=== PATIENT | male | born 1960 | race Caucasian/White ===

== ENCOUNTER 2016-10-26 19:51 | Emergency (ER) | payer MEDICARE ==
--- NOTE | ~2016-10-26 | ER ---
PATIENT'S NAME: KAREEM VITAL [facility] AGE: 56 Y [address] ROOM: [place] [id number] LOCATION: [facility] ADMIT DATE: 10/26/2016 ER/Outpatient Report DISCHARGE DATE: 10/26/2016 FAMILY PHYSICIAN: Anyi Garner MD ATTENDING PHYSICIAN: Dawit Horne Arrival Time: 2018 hours. Encounter Time: 2022. SUBJECTIVE: Chief complaint of abdominal pain. HISTORY OF PRESENT ILLNESS: The patient is a pleasant 56-year-old male who arrives via private auto complaining of abdominal pain. Appears in no distress at this time. The patient notes a 4 cm diameter bruise on his abdomen. Denies any trauma to the area. Pain in the abdomen is localized beneath this. He feels distended. Complains of excessive flatulence. Feels the bruise has been gradually progressively worsening in terms of discomfort. Has some occasional diarrhea. Denies any changes in his appetite as of late. Denies flank pain. Denies burning, frequency, or urgency with urination. Denies nausea or vomiting. PAST MEDICAL HISTORY: Includes a history of epilepsy as well as heart disease. His most recent seizure was on Tuesday. He describes them as a shaking sensation that usually starts in one arm and slowly expands to take over his whole body. Usually ends up falling to his knees before hitting the ground. PAST SURGICAL HISTORY: Denied by the patient. MEDICATIONS: As listed on the nursing notes. ALLERGIES: LISTED ON THE NURSING NOTES. SOCIAL HISTORY: He is a nonsmoker. OBJECTIVE: VITAL SIGNS: Height is 6 feet 2 inches, weight is 114.8 kg, blood pressure 148/81, pulse 96 and regular, respirations 16, temperature 97.9, taken tympanically, SpO2 of 96% on room air. Pain level 2/10. GENERAL: The patient is a well-developed, well-nourished, obese male, in no PATIENT'S NAME: KAREEM VITAL [facility] AGE: 56 Y [address] ROOM: [place] [address] LOCATION: [facility] ADMIT DATE: 10/26/2016 ER/Outpatient Report DISCHARGE DATE: 10/26/2016 FAMILY PHYSICIAN: Anyi Garner MD ATTENDING PHYSICIAN: Emilee,Dawit D acute distress. He is calm. Alert and oriented to person, place, and time. HEENT: Head is atraumatic and normocephalic. Eyes with clear conjunctivae bilaterally. No discharge. Pupils are PERRLA bilaterally. EOMFI bilaterally. No nystagmus. NECK: Supple and without lymphadenopathy. Trachea midline. No JVD. LUNGS: Clear to auscultation bilaterally. No wheezes, crackles, rhonchi, or stridor. Normal respiratory effort. HEART: Regular rate and rhythm. No S3, S4, or extra sounds. ABDOMEN: Has a 4 cm diameter ecchymotic area superior and left of the umbilicus. Locally tender, but no hematoma. There are also several bruises across his belly in various stages of healing. Skin is not broken. No hernia. Positive bowel sounds x4. Resonant percussion. Belly is distended, but not tender. No masses. Michael's negative bilaterally. EXTREMITIES: Without numbness or tingling. No clubbing, cyanosis, or edema. Full range of motion x4. +2/4 pulses at the radial and dorsalis pedis arteries bilaterally. LABORATORY DATA: Urinalysis shows yellow and clear urine. Spec gravity at 1.025, pH 5.0, leukocytes of 25, nitrites negative, protein 15, glucose negative, ketones negative, urobilinogen 1, bilirubin presumptive positive by dipstick, blood negative, 2 to 5 white blood cells present per high-power field, negative for red blood cells, epithelial present in 2-5 cells per high-power field, moderate bacteria, +1 mucus, calcium oxalate crystals and hyaline casts present in 0-2 incidences per low power field. CBC shows white count at 7.3, red blood cell 5.23, hemoglobin 16.0, hematocrit 44.8, MCV 85.7, MCH 30.6, MCHC 35.7, RDW 12.7, platelets 190, MPV 9.8. Auto diff is largely negative outside of IG percentage, marginally elevated at 0.4. D-dimer quantitative at less than 0.19. CMS shows sodium at 144, potassium 3.5 marginally depressed, chloride 109, CO2 of 24, anion gap 11.5, glucose 110 marginally elevated, calcium 9.1, BUN 19, creatinine 0.9, total protein 7.4, albumin 3.7, globulin 3.7, A/G ratio 1.0, total bilirubin 0.5, alkaline phosphatase 136, AST 38, ALT 62, estimated GFR greater than 60. RADIOLOGY: CT of the abdomen and pelvis with and without IV contrast shows diverticulosis, but not diverticulitis. All other findings are negative. No kidney stone noted on radiology report. ASSESSMENT: 1. Urinary tract infection. 2. Nephrolithiasis. 3. Diverticulosis. 4. Gas pain. PATIENT'S NAME: KAREEM VITAL [facility] AGE: 56 Y [address] ROOM: [place] [address] LOCATION: [facility] ADMIT DATE: 10/26/2016 ER/Outpatient Report DISCHARGE DATE: 10/26/2016 FAMILY PHYSICIAN: Anyi Garner MD ATTENDING PHYSICIAN: Dawit Horne PLAN: We will start the patient on some antibiotics, likely Bactrim, for UTI. Advised him to push fluids aggressively to wash through the infectious element as well as the calcium oxalate crystals noted on his urinalysis. Also discussed him using [id number] Mylanta for gas pain. Stay away from dairy products for intake over the next week to minimize gas production within the belly. The patient was receptive to the conversation. He should follow up with his regular physician within the week for routine follow up, or sooner should his condition persist or worsen. Return to the emergency department if after hours. Take all medications as prescribed. Discussed med risks, side effects, and benefits in detail. Give plenty of rest and liquids. Take Tylenol or ibuprofen as directed for fever or discomfort unless allergic, asthmatic, or aspirin sensitive. Return to the emergency department or primary care provider if symptoms persist or worsen. KAREEM LANDIN PA-C FOR DAWIT HORNE MD SMR/modl /[id number] d: 10/27/16 0442 t: 11/07/16 1529, OUTPATIENT REPORT
[2016-10-26 21:16] LABS: BASOPHIL # 0.1 K/uL (0.0-0.2); BASOPHIL % 1.1 %; EOSINOPHIL # 0.2 K/uL (0.0-0.5); EOSINOPHIL % 2.2 %; HEMATOCRIT 44.8 % (37.0-53.0); IMMATURE GRANULOCYTE % 0.4 %; LYMPHOCYTE # 1.6 K/uL (0.8-4.0); LYMPHOCYTE % 22.6 %; MCH 30.6 pg (27.0-34.0); MCHC 35.7 gm/dL (32.0-36.5); MCV 85.7 fl (83.0-98.0); MONOCYTE # 0.5 K/uL (0.0-1.0); MONOCYTE % 6.6 %; MPV 9.8 fl (9.4-12.4); NEUTROPHIL # (ANC) 4.9 K/uL (1.4-9.0); NEUTROPHIL % 67.1 %; NRBC % 0 /100WBC (0-0.00); PLATELET COUNT 190 K/uL (150-450); RBC 5.23 M/uL (4.00-6.00); RDW-CV 12.7 % (11.9-14.6); WBC 7.3 K/uL (4.0-11.0)
[2016-10-26 21:18] LABS: BLOOD URINE NEGATIVE /UL (NEGATIVE); COLOR URINE YELLOW (YELLOW); GLUCOSE URINE NEGATIVE (NEGATIVE); KETONE URINE NEGATIVE (NEGATIVE); LEUKOCYTES URINE 25 /UL (NEGATIVE); NITRITE URINE NEGATIVE (NEGATIVE); PROTEIN URINE 15 mg/dL (NEGATIVE); SPEC GRAVITY URINE 1.025 (1.003-1.035); TURBIDITY URINE CLEAR (CLEAR); UROBILINOGEN URINE 1 mg/dL (NORMAL)
[2016-10-26 21:32] LABS: ALBUMIN 3.7 gm/dL (3.5-5.0); ALK PHOS 136 IU/L (33-138); ALT 62 IU/L (12-78); ANION GAP 11.5 (10.0-19.0); AST 38 IU/L (10-40); BLOOD UREA NITROGEN 17 mg/dL (6-24); CALCIUM 9.1 mg/dL (8.5-10.5); CHLORIDE 109 mMol/L (96-110); CO2 24 mMol/L (22-32); CREATININE 0.9 mg/dL (0.6-1.3); ESTIMATED GFR (MDRD EQUATION) > 60; POTASSIUM 3.5 mMol/L (3.7-5.1); SODIUM 141 mMol/L (135-145); TOTAL BILIRUBIN 0.5 mg/dL (0.0-1.5); TOTAL PROTEIN 7.4 g/dL (6.0-8.4)
[2016-10-26 22:15] LABS: BACTERIA URINE MODERATE (NEGATIVE); CRYSTALS URINE CALCIUM OXALATE (NEGATIVE); HYALINE CAST URINE 0-2 #/LPF (NEGATIVE); MUCUS URINE 1+ (NEGATIVE); RBC URINE NEGATIVE #/HPF (NEGATIVE)
== END 2016-10-26 22:50 | disposition disaster alternative care site (69) ==
LOC: GMED 19:51
PROVIDERS: Emergency Medicine
DX: K57.30 Diverticulosis of large intestine without perforation or abscess without bleeding (principal); N20.0 Calculus of kidney; N39.0 Urinary tract infection, site not specified; I51.9 Heart disease, unspecified; G40.909 Epilepsy, unspecified, not intractable, without status epilepticus; Z88.0 Allergy status to penicillin; Z79.899 Other long term (current) drug therapy; Z79.82 Long term (current) use of aspirin
CPT/HCPCS: J7030; Q9967